=== PATIENT | female | born 1995 | race Caucasian/White ===

== ENCOUNTER 2016-10-06 13:06 | Emergency (ER) | payer OTHER ==
[~2016-10-06] VITALS: Ht 165.1 cm; Wt 79.8 kg
[2016-10-06 13:14] VITALS: TEMP 37; Ht 165.1 cm; Wt 79.8 kg
[2016-10-06] MEDS ORDERED: AMT100 PO (14:17)
[2016-10-06] MEDS ORDERED: BCPILLS PO (14:17)
[2016-10-06] MEDS ORDERED: TOPI25TA10 PO (14:17)
[2016-10-06] MEDS ORDERED: KETOROLAC TROMETHAMINE 30 MG/ML VIAL IV STA (14:27)
--- NOTE | 2016-10-06 15:01 | EMERGENCY ROOM VISIT NOTE ---
History Report prepared by Surendra: Annalisa Parry Under the Supervision of: Dr. Cindy Jones D.O. First contact with patient: 13:51 Chief Complaint: COUGH Stated Complaint: COUGH,CHEST PAIN, HARD TO BREATHE Nursing Triage Summary: pt reports she had flu aug 31 2-3 weeks. last week dx with pneumonia. pt reports coughing so hard she is vomiting , has chest pain started last night History of Present Illness The patient is a 20 year old female who presents to the Emergency Room with complaints of severe and persistent cough starting a few days ago. She has been vomiting after severe cough spells. She also reports a runny nose. She notes left sided chest pain starting last night. She has worsening symptoms with deep breathing. She was diagnosed with the flu on August 31 and with pneumonia on September 19. She finished the doxycycline last night. The patient denies fevers , abdominal pain, diarrhea, urinary symptoms, or any other complaints. Source of History: patient Onset: a few days ago Position: other (global) Symptom Intensity: severe Quality: other (cough) Timing: other (persistent) Modifying Factors (Worsening): breathing (deep) Associated Symptoms: + chest pain, + vomiting, No abdominal pain, No diarrhea, No fevers, No urinary symptoms Review of Systems See HPI for pertinent positives & negatives. A total of 10 systems reviewed and were otherwise negative. Past Medical & Surgical Medical Problems: (1) Flu (2) Flu (3) Pneumonia (4) Pneumonia Family History FH: breast cancer Social History Smoking Status: Never Smoker Marital Status: single Occupation Status: [employer] student Current/Historical Medications Scheduled Amitriptyline HCl (Amitriptyline HCl), 1 TAB PO DAILY Control Pills ( Control Pills), 1 TAB PO DAILY Hydrocodone W/ Homatropine (Hycodan 5/1.5MG 5 Ml), 10 ML PO Q6 Topiramate (Topamax), 25 MG PO DAILY Allergies Coded Allergies: Penicillins (Unverified Allergy, Severe, anaphylaxis, 10/06/16) Physical Exam Vital Signs Date Time Temp Pulse Resp B/P Pulse Ox O2 Delivery O2 Flow Rate FiO2 10/06/16 17:27 99 20 114/74 93 10/06/16 17:07 99 20 114/74 93 Room Air 10/06/16 15:02 90 20 131/72 93 Room Air 10/06/16 13:14 37.0 125 24 151/86 93 Room Air 10/06/16 13:14 96 Room Air Physical Exam HEENT: Head - normocephalic and atraumatic Pupils are equal, round, and reactive to light. Extraocular eye muscles are intact, and sclera are anicteric. Nose - moist nasal mucosa without discharge. Mouth - moist buccal mucosa. Oropharynx is nonerythematous and there is no tonsillar exudate or edema noted. Neck: Supple; no JVD, nuchal rigidity, cervical lymphadenopathy. Chest: Breast exam revealed a palpable mobile mass at 5 o' clock in the left breast. Reproducible discomfort with palpation of the left anterior chest wall. Heart: Regular rate and rhythm. There is a normal S1 and S2 with no murmurs, clicks, or gallops appreciated. Lungs: Clear to auscultation bilaterally with no wheezes, rales, or rhonchi. Abdomen: Soft, completely nontender, nondistended, with good bowel sounds. There are no palpable pulsatile masses or hepatosplenomegaly. There is no guarding, rigidity, or rebound noted. Extremities: No evidence of cyanosis, clubbing, or edema. There are easily palpable peripheral pulses. Skin: warm and dry with good turgor and no rashes. Medical Decision & Procedures ER Provider Diagnostic Interpretation: X-ray results as stated below per interpretation by me and the radiologist: TWO VIEW CHEST CLINICAL HISTORY: Cough. Atypical chest pain. FINDINGS: PA and lateral chest radiographs are obtained. No prior studies are available for comparison at the time of dictation. The cardiomediastinal silhouette is unremarkable. The lungs and pleural spaces are clear. There is no pneumothorax. The bony thorax appears intact. IMPRESSION: No active disease in the chest. Electronically signed by: Mark Baez M.D. 10/06/2016 3:17 PM Dictated Date/Time: 10/06/2016 3:16 PM Laboratory Results 10/06/16 14:55 Red Blood Count 5.02, Mean Corpuscular Volume 85.9, Mean Corpuscular Hemoglobin 30.9, Mean Corpuscular Hemoglobin Concent 36.0, Mean Platelet Volume 10.1, Neutrophils (%) (Auto) 59.4, Lymphocytes (%) (Auto) 23.3, Monocytes (%) (Auto) 7.4, Eosinophils (%) (Auto) 9.3, Basophils (%) (Auto) 0.3, Neutrophils # (Auto) 7.66, Lymphocytes # (Auto) 3.00, Monocytes # (Auto) 0.96, Eosinophils # (Auto) 1.20, Basophils # (Auto) 0.04 10/06/16 14:55 Test 10/06/16 14:55 White Blood Count 12.90 K/uL (4.8-10.8) Red Blood Count 5.02 M/uL (4.2-5.4) Hemoglobin 15.5 g/dL (12.0-16.0) Hematocrit 43.1 % (37-47) Mean Corpuscular Volume 85.9 fL (80-100) Mean Corpuscular Hemoglobin 30.9 pg (25-34) Mean Corpuscular Hemoglobin Concent 36.0 g/dl (32-36) Platelet Count 286 K/uL (130-400) Mean Platelet Volume 10.1 fL (7.4-10.4) Neutrophils (%) (Auto) 59.4 % Lymphocytes (%) (Auto) 23.3 % Monocytes (%) (Auto) 7.4 % Eosinophils (%) (Auto) 9.3 % Basophils (%) (Auto) 0.3 % Neutrophils # (Auto) 7.66 K/uL (1.4-6.5) Lymphocytes # (Auto) 3.00 K/uL (1.2-3.4) Monocytes # (Auto) 0.96 K/uL (0.11-0.59) Eosinophils # (Auto) 1.20 K/uL (0-0.5) Basophils # (Auto) 0.04 K/uL (0-0.2) RDW Standard Deviation 41.9 fL (36.4-46.3) RDW Coefficient of Variation 13.4 % (11.5-14.5) Immature Granulocyte % (Auto) 0.3 % Immature Granulocyte # (Auto) 0.04 K/uL (0.00-0.02) D-Dimer 240 ug/L FEU (0-500) Anion Gap 9.0 mmol/L (3-11) Est Creatinine Clear Calc Drug Dose 111.5 ml/min Estimated GFR () 116.0 Estimated GFR (Non- 100.1 BUN/Creatinine Ratio 14.6 (10-20) Calcium Level 9.6 mg/dl (8.5-10.1) Laboratory results per my review. Medications Administered Medications (Trade) Dose Ordered Sig/Ridge Route Start Time Stop Time Status Last Admin Dose Admin Ketorolac Tromethamine (Toradol Inj) 30 mg NOW STAT IV 10/06/16 14:27 10/06/16 14:28 DC 10/06/16 15:02 30 MG Hydrocodone Bit/ Homatropine Methylb (Hycodan Syrup) 10 ml NOW STAT PO 10/06/16 16:25 10/06/16 16:26 DC 10/06/16 16:32 10 ML Procedure Toradol Inj 30 mg IV, Hycodan 10 ml PO ED Course 1351: Past medical records reviewed. The patient was evaluated in room B09. A complete history and physical exam was performed. An IV lock was initiated and labs were drawn as above. 1427: Toradol Inj 30 mg IV. The patient had a chest x-ray as described above. I discussed the case with the brand protection manager and she will arrange for outpatient mammogram testing. 1530: The patient's mammogram is scheduled for next Sunday 1548: I reevaluated the patient who reports that her chest pain is worse now than before when she takes a deep breath. 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 1625: Hycodan 10 ml PO 1706: Upon reevaluation, the patient is doing well. Her cough has decreased in frequency and the discomfort of the left sided chest feel somewhat better. I discussed findings and results with her. She verbalized agreement of the treatment plan. She was discharged home. Medical Decision This is a 20 year old female who presents to the Emergency Room with a chief complaint of a cough. Differential diagnosis includes but is not limited to costochondritis, pleurisy, bronchitis, mastitis, upper respiratory infection, PE. Her labs showed white blood cell count of 12.9, stable H&H, normal renal function and glucose, D-Dimer is 240. The patient has no leukocytosis or fever to suggest a significant infectious process. The pain seems to reproducible with palpation left anterior chest wall. The finding in the left breast is most likely an incidental finding and not the cause of the pain in her left chest wall. The patient was encouraged to follow-up with [facility] if the pain persists. She can return here to the emergency department if symptoms worsen. [place] Drug Monitoring Program Search Results: patient reviewed within database Drug Monitoring Findings: The patient was not found in the system. Impression Primary Impression: Left-sided chest wall pain Additional Impression: Cough Scribe Attestation The scribe's documentation has been prepared under my direction and personally reviewed by me in its entirety. I confirm that the note above accurately reflects all work, treatment, procedures, and medical decision making performed by me. Departure Information Dispostion Home / Self-Care Prescriptions Hydrocodone W/ Homatropine (HYCODAN 5/1.5MG 5 ML) 1 Syp Syp 10 ML PO Q6, #200 ML Prov: Cindy Jones D.O. 10/06/16 Referrals No Doctor, Assigned (PCP) [facility] Forms HOME CARE DOCUMENTATION FORM, IMPORTANT VISIT INFORMATION Patient Instructions ED Chest Pain Atypical Unkn Cause, My [facility] Additional Instructions Rest. Limit any strenuous activity. Hycodan - 10ml every 6 hours for cough. Ibuprofen - 600mg every 6 hours with food for pain Return to the ER if your symptoms get worse. Follow up with [facility] if symptoms continue Follow up with mammogram because of finding in left breast Problem Qualifiers
[2016-10-06 15:04] LABS: BASO % 0.3 %; BASO ABS # 0.04 K/uL (0-0.2); COMPLETE YES; EOS % 9.3 %; HEMATOCRIT 43.1 % (37-47); IG% 0.3 %; LYMPH % 23.3 %; MEAN CELL VOLUME 85.9 fL (80-100); MEAN CORPUSCULAR HEMOGLOBIN 30.9 pg (25-34); MEAN PLATELET VOLUME 10.1 fL (7.4-10.4); MONO % 7.4 %; NEUT % 59.4 %; PLATELET COUNT 286 K/uL (130-400); RED BLOOD COUNT 5.02 M/uL (4.2-5.4)
--- NOTE | 2016-10-06 15:18 | DIAGNOSTIC IMAGING REPORT ---
TWO VIEW CHEST CLINICAL HISTORY: Cough. Atypical chest pain. FINDINGS: PA and lateral chest radiographs are obtained. No prior studies are available for comparison at the time of dictation. The cardiomediastinal silhouette is unremarkable. The lungs and pleural spaces are clear. There is no pneumothorax. The bony thorax appears intact. IMPRESSION: No active disease in the chest. Electronically signed by: Mark Baez M.D. 10/06/2016 3:17 PM Dictated Date/Time: 10/06/2016 3:16 PM
[2016-10-06 15:24] LABS: BUN/CREATININE RATIO 14.6 (10-20); CALCIUM 9.6 mg/dl (8.5-10.1); CREATININE 0.84 mg/dl (0.60-1.20); POTASSIUM 4.2 mmol/L (3.5-5.1)
[2016-10-06] MEDS ORDERED: HYDROCODONE/HOMATROPINE SYRUP 5MG/1.5MG 5ML UDP PO STA (16:25)
[2016-10-06] MEDS ORDERED: HYDR5SYP11 PO (17:13)
[2016-10-06 17:27] VITALS: BP 114/74; PULSE 99; O2SAT 93
== END 2016-10-06 17:37 | disposition home or self-care (01) ==
LOC: C.EDB 13:08
DX: R07.89 Other chest pain (principal); R05 Cough